=== PATIENT | female | born 1985 | race Caucasian/White ===

== ENCOUNTER 2024-03-22 12:12 | Emergency (ER) | payer OTHER ==
[~2024-03-22] VITALS: Ht 162.6 cm; Wt 127.0 kg
[2024-03-22 12:25] VITALS: BP 152/80; TEMP 98.6
[2024-03-22] MEDS ORDERED: DIPH25CA83 PO (14:12)
[2024-03-22] MEDS ORDERED: FAMO-131 PO (14:12)
[2024-03-22] MEDS ORDERED: PRED20TA PO (14:12)
[2024-03-22 14:18] VITALS: O2SAT 98
== END 2024-03-22 14:20 | disposition home or self-care (01) ==
LOC: ER 12:22
DX: L29.8 Other pruritus (principal); L50.9 Urticaria, unspecified; Z60.2 Problems related to living alone